=== PATIENT | female | born 1960 | race Asian ===

== ENCOUNTER 2017-04-27 13:20 | Observation (INO) | payer MEDICAID ==
--- NOTE | 2017-04-27 13:40 | CPEKG ---
Heart Rate: 75 RR Interval: 800 P-R Interval: 168 QRSD Interval: 98 QT Interval: 416 QTC Interval: 465 P [place]: 88 QRS [place]: 89 T Wave [place]: 69 EKG Severity - BORDERLINE ECG - EKG Impression: SINUS RHYTHM EKG Impression: PROBABLE LEFT ATRIAL ABNORMALITY Electronically Signed By: Mark Duckworth 27-Apr-2017 15:23:49
--- NOTE | 2017-04-27 13:40 | EDPHY ---
H & P Time Seen by Provider: 04/27/17 13:39 HPI/ROS: Chief complaint. Polypharmacy overdose HPI. Patient is a [age]-year-old female here by EMS after not responding to phone calls this morning. She apparently crawled to the door of the apartment after family was knocking to answer the door. The patient had blocked the door from the inside with a chair. She was last seen normal at 9:00 p.m. last night. She has recently told her family that she is on the "dark side ". They had recommended seen mental health however she had declined. She is in a patient with [facility]. She has attempted overdose in the past. [place] [employer] notes that they found empty pill bottles of Zoloft, Abilify, Lamictal in her room. Unknown time of ingestion. Patient admits to suicide ideation ROS Constitutional. Generalized weakness Eyes. no problems with vision ENT. no sore throat, no nasal drainage Cardiovascular. no chest pain Respiratory. no shortness of breath, no cough Abdominal. Vomiting . no problems urinating MS. no calf pain/swelling, no neck/back pain, no joint pain Skin. no rash Lymph. no swollen glands Neuro. Can not walk secondary to intoxication Past Medical/Surgical History: Past medical history Respiratory, GERD, hypothyroid Social History: Single, nonsmoker, unknown alcohol Smoking Status: Never smoked Physical Exam: General Appearance: Alert but slow to respond well-developed female mild distress vital signs are stable Eyes: Pupils equal and round no pallor or injection. ENT, mucous membranes are moist. Vomitus around mouth Respiratory: There are no retractions, lungs are clear to auscultation. Cardiovascular: Regular rate and rhythm. Gastrointestinal: Abdomen is soft and nontender, no masses, bowel sounds normal. Neurological: Awake and alert and responds appropriately but very slowly and softly Skin: Warm and dry, no rashes. Musculoskeletal: Neck is supple nontender. Extremities symmetrical, full range of motion. Psychiatric: Patient is oriented X 3, there is no agitation. Constitutional: Initial Vital Signs Temperature (C) 37.0 C 04/27/17 13:35 Heart Rate 75 04/27/17 13:35 Respiratory Rate 14 04/27/17 13:35 Blood Pressure 144/79 H 04/27/17 13:35 O2 Sat (%) 97 04/27/17 13:35 O2 Delivery Mode Room Air Allergies/Adverse Reactions: codeine [Codeine] Allergy (Verified 07/11/15 08:43) Home Medications: Medication Instructions Recorded Estradiol [Estraderm] 0.05 mg TD TUSA 11/17/14 Progesterone, Micronized 100 mg PO HS 11/17/14 [Progesterone] lamOTRIGine [Lamotrigine] 100 mg PO BID 11/17/14 Abilify 04/27/17 Zoloft 100mg (*) 04/27/17 Medical Decision Making - Diagnostics EKG Interpretation: EKG interpreted by me shows normal sinus rhythm normal interval and axis. QRS is normal there is no significant ST elevation or depression. No arrhythmia. The rate is 75 Procedures: IV normal saline, monitor ED Course/Re-evaluation: I consulted and discussed the case with poison Control case # [id number] Re-evaluation at 2:40 p.m. patient is ambulatory with assistance as she is really quite off balance I consulted and discussed the case with Dr. Leena tovar, hospitalist who agrees to the admission Differential Diagnosis: Polypharmacy overdose. I considered a arrhythmia is, electrolyte abnormalities , other ingestion use. Patient has suicide ideation and needs mental health eval - Data Points Laboratory Results: Laboratory Results 04/27/17 14:10 04/27/17 12:45 04/27/17 04/27/17 14:10 12:45 WBC 12.53 10^3/uL H 10^3/uL (3.80-9.50) RBC 5.17 10^6/uL 10^6/uL (4.18-5.33) Hgb 13.4 g/dL g/dL (12.6-16.3) Hct 39.2 % % (38.0-47.0) MCV 75.8 fL L fL (81.5-99.8) MCH 25.9 pg L pg (27.9-34.1) MCHC 34.2 g/dL g/dL (32.4-36.7) RDW 14.4 % % (11.5-15.2) Plt Count 247 10^3/uL 10^3/uL (150-400) MPV 9.3 fL fL (8.7-11.7) Neut % (Auto) 89.9 % H % (39.3-74.2) Lymph % (Auto) 4.1 % L % (15.0-45.0) [place] % (Auto) 5.2 % % (4.5-13.0) Eos % (Auto) 0.1 % L % (0.6-7.6) Baso % (Auto) 0.2 % L % (0.3-1.7) Nucleat RBC Rel Count 0.0 % % (0.0-0.2) Absolute Neuts (auto) 11.28 10^3/uL H 10^3/uL (1.70-6.50) Absolute Lymphs (auto) 0.51 10^3/uL L 10^3/uL (1.00-3.00) Absolute Monos (auto) 0.65 10^3/uL 10^3/uL (0.30-0.80) Absolute Eos (auto) 0.01 10^3/uL L 10^3/uL (0.03-0.40) Absolute Basos (auto) 0.02 10^3/uL 10^3/uL (0.02-0.10) Absolute Nucleated RBC 0.00 10^3/uL 10^3/uL (0-0.01) Immature Gran % 0.5 % % (0.0-1.1) Immature Gran # 0.06 10^3/uL 10^3/uL (0.00-0.10) Sodium 140 mEq/L mEq/L (134-144) Potassium 4.5 mEq/L mEq/L (3.5-5.2) Chloride 98 mEq/L mEq/L (97-110) Carbon Dioxide 23 mEq/l mEq/l (22-31) Anion Gap 19 mEq/L H mEq/L (8-16) BUN 11 mg/dL mg/dL (7-23) Creatinine 0.7 mg/dL mg/dL (0.6-1.0) Estimated GFR > 60 Glucose 120 mg/dL H mg/dL (70-100) Calcium 9.7 mg/dL mg/dL (8.5-10.4) Creatine Kinase Pending Ethyl Alcohol < 10 mg/dL mg/dL (0-10) Departure - Departure Disposition: [facility] Clinical Impression: Suicide ideation, Polysubstance abuse Altered mental status Qualifiers: Altered mental status type: disorientation Qualified Code(s): R41.0 - Disorientation, unspecified Condition: Fair Referrals: Patient,NotPresent [Unknown] - As per Instructions
[2017-04-27 14:14] LABS: PLATELET COUNT 247 10^3/uL (150-400)
[2017-04-27] MEDS ORDERED: ONDANSETRON 4 MG/2 ML VIAL IVP ONE (14:25)
[2017-04-27] MEDS ORDERED: ONDANSETRON 4 MG/2 ML VIAL ONE (14:26)
[2017-04-27 15:01] LABS: CREATINE KINASE 3196 IU/L (0-156)
[2017-04-27] MEDS ORDERED: NS 1,000 ML IV ONE (15:32)
[2017-04-27] MEDS: NS 1,000 ML IV SCH (16:24)
--- NOTE | 2017-04-27 17:29 | GHP ---
[f rep st] HISTORY AND PHYSICAL DATE OF ADMISSION: 04/27/2017 PRIMARY CARE PROVIDER: Dr. Jose Gutierrez with [facility]. CHIEF COMPLAINT: Suspected overdose and altered mental status. HISTORY OF PRESENT ILLNESS: Ms. Andrea is a 56-year-old female with a past medical history of anxiety and hypothyroidism, who was brought in to [facility] by ambulance after a friend of hers found her to be somewhat stuporous earlier today. Her friend who is here today was previously a domestic partner, but it sounds like they are currently . However, she does check in with him on a daily basis to help with cooking of his meals. He states that she is under the care of a therapist, but it is uncertain if this is a psychiatrist or counselor, and she had expressed to him recently that she had some dark thoughts, but she did not expand with him any further than that, and that she was working through it with her therapist. Her friend normally receives a call from her each morning around 8:30 to make sure that he is awake and doing okay. This morning she did not call and her friend went to the apartment around 10 o'clock in the morning, but there was no answer when he knocked on the door. He waited another hour, thinking that maybe she was still sleeping, but at that point in time began to knock louder. She was apparently able to crawl to the door, open at, but then laid back down on the floor of the apartment. He states that he did notice some emesis on the floor in the apartment. At that point in time, though, he called 911 and then she was brought to the [facility] emergency room. It was noted in her records that they had found empty bottles of Zoloft, Abilify, and Lamictal. The number of tablets was unknown and the time of ingestion was also unknown, but she had been seen the night prior around 9:00 p.m. The patient does admit to having suicidal ideation and is on an M1 hold. During my evaluation her friend does say that she does appear to be doing better in regard to her alertness as compared to 3-4 hours previously. PAST MEDICAL HISTORY: 1. Anxiety. 2. Esophageal reflux. 3. Vocal cord dysfunction. 4. Hypothyroidism. PAST SURGICAL HISTORY: None. MEDICATION LIST: This medication list is taken from her emergency room list: 1. Progesterone 100 mg nightly. 2. Estradiol 0.5 mg patch. 3. Lamictal 100 mg twice a day. 4. Zoloft 100 mg daily. 5. Abilify, uncertain dosage and administration. ALLERGIES: Codeine, unknown reaction. SOCIAL HISTORY: Patient is originally from [facility]. She is single. She is not a tobacco user. She has 3 daughters, 1 of which lives here in [place] in [place]. The other 1 lives in [place] and the other 1 lives in [place]. FAMILY HISTORY: Unknown. CODE STATUS: The patient's friend believes that her daughter here in [place] is her power of curtain stretcher. The patient's friend does not know of any do not resuscitation code status so she is a full code status. REVIEW OF SYMPTOMS: CONSTITUTIONAL: There is no report of any fevers or chills. ENT: No report of any recent upper respiratory illnesses. CARDIOVASCULAR: No complaints of chest pain, palpitations or syncopal episodes. RESPIRATORY: No complaints of shortness of breath or productive cough. GI: Positive for known emesis on the apartment floor, but otherwise no complaints of abdominal pain, nausea, or diarrhea. : No report of any difficulty with urination. NEUROLOGIC: No complaints of any headaches or focal weakness. HEMATOLOGIC: No history of any deep vein thrombosis or pulmonary embolism. PSYCHIATRIC: History of anxiety, reportedly followed currently at [facility]. ENDOCRINE: Positive for hypothyroidism. No history of diabetes. SKIN: No report of any skin rashes. MUSCULOSKELETAL: No focal joint pains. PHYSICAL EXAM: VITAL SIGNS: Temperature 37.0, blood pressure 144/79, heart rate 75, respirations 14, saturating 97% on room air. GENERAL: Patient is somewhat sedate, but arousable and interactive. She does follow commands. She will vocalize answers to when asked specific questions, but generally falling asleep when not aroused. HEENT: Extraocular movements are intact. Pupils are equal and reactive. No scleral icterus is noted. Mucous membranes dry. NECK: Supple. No thyroid enlargement noted. CHEST: Clear on auscultation. Normal respiratory effort. HEART: Regular rate and rhythm. No murmurs are appreciated. ABDOMEN: Soft, nontender, nondistended. Normal bowel sounds. : No Silva catheter in place. EXTREMITIES: No significant pitting edema. MUSCULOSKELETAL: No calf pain with palpation. NEUROLOGIC: Cranial nerves 2- 12 appear intact and she has 4/5 strength in all extremities. LABORATORY: White blood cell count is 12, hemoglobin 13, platelets 247. Sodium 140, potassium 4.5, chloride 98, bicarb 23, BUN 11, creatinine 0.7, glucose of 120. CPK is 3000. IMAGING: Chest x-ray, negative chest. I also did review the images myself and concur with read. ASSESSMENT AND PLAN: 1. Overdose. The patient appears to have overdosed on her prescription psychiatric medications including Zoloft, Abilify, and Lamictal. The amount of which and timing is uncertain at the present time. She is really unable to give us much added information. Poison Control has been consulted and the case number is [id number]. Per my discussion with her emergency room attending, no specific recommendation at this point in time other than supportive measures and close monitoring under telemetry. She will be going to the ICU for monitoring. 2. Suicidal ideation. Psychiatric consultation when appropriate. Currently she seems still somewhat sedate, so I have not contacted Psychiatry at this time. 3. Potential for QT prolongation. Her QT interval was measured at 465. Will repeat an ECG for reassessment. 4. Leukocytosis, uncertain, possibly reactive. There does not appear to be any signs or symptoms pointing towards infection at this point time. Monitor for fevers. We will repeat in the morning. Consider empiric antibiotics should she develop fever or clinical symptoms suggestive of an infection. 5. Rhabdomyolysis. The patient has a mildly elevated CPK level at 3000. She may have been down on the floor of her apartment for some time, at least overnight. Will recheck this with her morning labs and continue with IV fluids overnight. 6. Bowel, bladder. Consider bowel regimen if constipation develops. 7. Deep vein thrombosis prophylaxis, Lovenox. 8. Disposition. She may only be here for overnight stay for observation so I will admit her under an observation status at this point in time. /[id number]/MODL MTDD
[2017-04-27] MEDS: FAMOTIDINE 20 MG/NACL 50 ML IV SCH (21:18)
[2017-04-28] MEDS: NS 1,000 ML IV SCH (03:00)
[2017-04-28 05:38] LABS: PLATELET COUNT 243 10^3/uL (150-400)
[2017-04-28 06:20] LABS: CREATINE KINASE 5083 IU/L (0-156)
--- NOTE | 2017-04-28 07:59 | CPEKG ---
Heart Rate: 73 RR Interval: 822 P-R Interval: 164 QRSD Interval: 88 QT Interval: 380 QTC Interval: 419 P [place]: 80 QRS [place]: 89 T Wave [place]: 66 EKG Severity - NORMAL ECG - EKG Impression: SINUS RHYTHM EKG Impression: LEFT ATRIAL ABNORMALITY Electronically Signed By: Lana Muniz 28-Apr-2017 17:22:09
[2017-04-28 08:47] VITALS: O2SAT 96
[2017-04-28] MEDS ORDERED: ENOXAPARIN 40 MG/0.4 ML SYR SC SCH (09:00)
[2017-04-28] MEDS: FAMOTIDINE 20 MG/NACL 50 ML IV SCH (09:04)
[2017-04-28 10:17] LABS: CREATINE KINASE 4997 IU/L (0-156)
--- NOTE | 2017-04-28 14:43 | ASMTCASEMG ---
Living Arrangements What is your living Answers: With Partner arrangement? Who do you live with? Type Of Residence What kind of residence do Answers: House you live in? Services Used Prior to Admission Community Services Used Answers: [facility] Prior to Admission Discharge Plan Comments Coordination Status Comments Notes: Patient is a 56yo female who was admitted for suicidal ideation. Empty bottles of Zoloft, Abilify, and Lamictal were found in her apartment. Patient is awaiting a [facility] psych eval. Patient will d/c per [facility] recommendations for treatment. CM available if d/c needs arise. Date Signed: 04/28/2017 02:43 PM Electronically Signed By:Zina Howard LCSW
[2017-04-28 19:39] VITALS: BP 101/59; PULSE 83; RESP 14; TEMP 97.6
--- NOTE | 2017-04-28 21:39 | GDS ---
[f rep st] DISCHARGE SUMMARY FINAL DIAGNOSES: 1. Intentional drug overdose on Zoloft, Abilify, and Lamictal. 2. Suicide attempt. 3. History of depression. 4. Leukocytosis. 5. Mild rhabdomyolysis. HOSPITAL COURSE: A 56-year-old female, who tried to commit suicide by ingesting Zoloft, Abilify, Hicks ictal, and Klonopin. She had a mildly elevated CK, as she was on the ground for a night. This rosaura d at 5083 and is trending down to just below 5000. She did not have any appreciable QT prolongation. She is alert, oriented, and eating when I see her. Her vital signs are normal. She was seen by [facility]. They recommended discharge to a crisis stabilization unit, w yoan is a voluntary placement. In a few days, she will be able to be discharged to [facility]. Edgardo green is currently living with her ex and feels trapped in this relationship. He has been verbally abusi ve. It was apparently the feeling of being overwhelmed that led to her suicide attempt. She contrac ts for safety at this point. I think she is safe for discharge, and this seems like an appropriate d isposition. I appreciate [facility]' evaluation. BILLING: I spent more than 35 minutes on the day of discharge discussing with other providers and co ordinating her care. /[id number]/MODL
[2017-04-29] MEDS ORDERED: PROGESTERONE,MICR 100 MG CAP PO SCH (09:00)
[2017-04-30] MEDS ORDERED: ESTRADIOL 0.05 MG PATCH TD SCH ×2 (10:31→10:38)
--- NOTE | 2017-04-30 15:54 | ASDISCHSUM ---
Discharge Information Plan Status: Medically Cleared to Leave:04/27/2017 Discharge Date:04/29/2017 01:10 AM CM D/C Disposition:Other Psych, Not [place] ADT D/C Disposition:Other Psych, Not [place] Projected Discharge Date:04/28/2017 12:00 AM Transportation at D/C:ALS/BLS Discharge Delay Reason: Follow-Up Date:04/28/2017 12:00 AM Discharge Slot: Final Diagnosis:Suicidal ideation, polysubstance OD Placement Information Patient Contact Information Contact Name:MILTONBELOUS Relationship:Daughter Address:[address] Work Phone: [facility] Alternate Phone: [facility]/Zip Code:[place] [address] Email: Financial Information Financial Class: Primary Plan Desc: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 Yes: Emergency dept visits in Answers: 1 last 6 months Score: 4 Date Signed: 04/27/2017 03:17 PM Electronically Signed By:Dominique Alas RN [facility] Initial CM Assessment Living Arrangements What is your living Answers: With Partner arrangement? Who do you live with? Type Of Residence What kind of residence do Answers: House you live in? Services Used Prior to Admission Community Services Used Answers: [facility] Prior to Admission Discharge Plan Comments Coordination Status Comments Notes: Patient is a 56yo female who was admitted for suicidal ideation. Empty bottles of Zoloft, Abilify, and Lamictal were found in her apartment. Patient is awaiting a [facility] psych eval. Patient will d/c per [facility] recommendations for treatment. CM available if d/c needs arise. Date Signed: 04/28/2017 02:43 PM Electronically Signed By:Zina Howard LCSW Case Management Discharge Plan Note Case Management Discharge Discharge Order Complete? Answers: Yes Patient to Obtain Answers: Other Notes: [facility] Medications Transportation Arranged Answers: [facility] will Pick (Date 04/28/2017 12:00 AM & Time) Discharge Comments Notes: Patient contracted for safety and went to [facility] stabilization Unit voluntarily and then will be discharged to [facility]. Date Signed: 04/30/2017 03:53 PM Electronically Signed By:Kylie Pichardo LCSW Intervention Information
== END 2017-04-29 01:10 ==
LOC: EDUNIT# → EEVIPCON 14:49 → F2N 16:00
PROVIDERS: ADMIT Internal Medicine; ATTEND Internal Medicine
DX: T43.222A Poisoning by selective serotonin reuptake inhibitors, intentional self-harm, initial encounter (principal); K21.9 Gastro-esophageal reflux disease without esophagitis; M62.82 Rhabdomyolysis
CPT/HCPCS: 71010; 93005; 96374; 99285; G0378; 80305; G0480; J1650; J2405